=== PATIENT | male | born 1935 | race Caucasian/White ===

== ENCOUNTER 2017-12-17 17:02 | Emergency (ER) | payer OTHER, MEDICARE ==
[~2017-12-17] VITALS: Ht 177.8 cm; Wt 115.7 kg
--- NOTE | 2017-12-17 17:43 | ED GI/GU/ABDOMINAL COMPLAINT ---
History of Present Illness General Chief Complaint: General Adult Stated Complaint: TROUBLE SWALLOWING, VOMITING BLOOD PER PT Source: patient, old records Exam Limitations: no limitations Vital Signs & Intake/Output Vital Signs & Intake/Output Vital Signs Date Time Temp Pulse Resp B/P B/P Pulse O2 O2 Flow FiO2 Mean Ox Delivery Rate 12/17 1904 98.0 89 18 161/77 98 Room Air 12/17 1720 98.0 86 16 202/97 98 Room Air Room Air Allergies Coded Allergies: No Known Allergies (12/17/17) Reconcile Medications Pantoprazole Sodium (Protonix) 40 MG TABLET. 1 TAB PO DAILY GERD Triage Note: PT TO TRIAGE FOR TROUBLE SWALLOWING JUST PRIOR TO ARRIVAL. PT STATES HE THEN COUGH UP PINK PHLEGM. PT APPEARS IN NO DISTRESS. DENIES FEVERS. PT HAS A HX OF GI BLEEDS. Triage Nurses Notes Reviewed? yes Onset: Abrupt Duration: minute(s): (30), better, resolved prior to arrival Timing: recent history Quality/Severity: burning, moderate Severity Numbers: 5 Location: epigastric Radiation: chest Activities at Onset: eating No Modifying Factors: none Associated Symptoms: denies HPI: 82 Year old male with history of dm, htn, hld, gout, presents to the ER for evaluation the patient is currently visiting [place] on business from [place]. He states while at a restaurant today while eating clam chowder clams and shells and lobster he had difficulty swallowing. He states that he became nauseous and vomited and states that he saw small amount of pink phlegm in the vomit. He denies any abdominal pain. He denies any difficulty swallowing at this time no chest pain he states when the symptoms happened he had epigastric discomfort. He states he had a similar episode approximate 6 years ago while in [place] and was told that he had "scratched his esophagus" and subsequently aspirated. He required he states the transfusion at that time. He denies any dizziness lightheadedness chest pain. He denies any complaints at this time he is a daily alcohol drinker. He denies any today Symptoms lasted for about 30 minutes today. He's been tolerating his own secretions since. No shortness of breath dizziness lightheadedness or headache (Maria Eugenia STRICKLAND,Yobany) Past History Travel History Traveled to [place] past 21 day No Medical History Any Pertinent Medical History? see below for history Cardiovascular: hypertension, hyperlipidemia Musculoskeletal: gout Endocrine: diabetes Surgical History Surgical History: non-contributory Psychosocial History ETOH Use: occasional use Family History Hx Contributory? No (Yobany Juárez) Review of Systems Review of Systems Constitutional: Reports: see HPI. Comments Review of systems: See HPI, All other systems negative. Constitutional, no chills no fever, HEENT: no sore throat no congestion, no ear pain Cardiovascular: No chest pain , no palpitation Skin: no rashes, no change in skin Respiratory: No dyspnea no cough no sputum no hemoptysis GI: No nausea vomiting, no diarrhea, no bloating/constipation : No dysuria No hematuria, no frequency Muscle skeletal: No joint pain, no back pain Neurologic: , no headache Heme/endocrine: No bruising (Yobany Juárez) Physical Exam Physical Exam General Appearance: well developed/nourished, no apparent distress, alert, awake Gastrointestinal: soft, non-tender Comments: Well-developed well-nourished person in no acute distress HEENT: Normal EENT exam; PERRL, EOMI,HEAD is atraumatic. moist mucous membranes. Neck: Supple, no stridor normal range of motion Back: Nontender, no CVA tenderness. Full range of motion Cardiovascular: Regular rate and rhythms no murmurs Respiratory: Chest nontender.There were no bony deformities, no asymmetry. No respiratory distress. Patient speaking in full complete sentences. Breath sounds clear to auscultation bilaterally: NO W/R/R Abdomen: Soft, nontender nondistended, no appreciable organomegaly. Normal bowel sounds. No rebound/guarding No ascites. Extremity: No edema, full range of motion of extremities Neuro: Alert oriented x3, motor sensory normal, There were no obvious focal neurologic abnormalities. Skin: No appreciable rash on exposed skin, skin is warm and dry. Psych: Mood and affect is normal, memory and judgment is normal. Core Measures ACS in differential dx? Yes Sepsis Present: No Sepsis Focused Exam Completed? No (Yobany Juárez) Progress Differential Diagnosis: bowel obstruction, colon cancer, gastritis, hepatitis, Deborah-Myron tear, pancreatitis, peptic ulcer, AMI, FOOD BOLUS, ASPIRATION Plan of Care: Orders Procedure Date/time Status TROPONIN LEVEL 12/17 2099 Complete EKG 12/17 2100 Active MISTAKE 12/17 182 Active LIPASE 12/17 181 Complete ETHANOL 12/17 1809 Complete TROPONIN LEVEL 12/18 1719 Complete PARTIAL THROMBOPLASTIN TIME 12/18 1719 Complete PROTHROMBIN TIME 12/18 1719 Complete COMPREHENSIVE METABOLIC PANEL 12/18 1719 Complete CBC WITHOUT DIFFERENTIAL 12/18 1719 Complete EKG 12/18 1719 Active Laboratory Tests 12/17/172053: Troponin I 0.02 12/17/171809: Anion Gap 14, Estimated GFR 32 L, BUN/Creatinine Ratio 14.5, Glucose 160 H, Calcium 8.6, Total Bilirubin 0.7, AST 27, ALT 32, Alkaline Phosphatase 163 H, Troponin I 0.01, Total Protein 7.1, Albumin 4.2, Globulin 2.9, Albumin/Globulin Ratio 1.4, Lipase 204, PT 10.7, INR 0.98, APTT 29, CBC w Diff NO MAN DIFF REQ, RBC 4.55 L, MCV 92.1, MCH 30.7, MCHC 33.3, RDW 15.4 H, MPV 6.8 L, Gran % 82.1 H, Lymphocytes % 10.8 L, Monocytes % 5.3, Eosinophils % 1.4, Basophils % 0.4, Absolute Granulocytes 9.5 H, Absolute Lymphocytes 1.3, Absolute Monocytes 0.6, Absolute Eosinophils 0.2, Absolute Basophils 0, Serum Alcohol < 10.0 12/17/171742: Lipase Cancelled, Serum Alcohol Cancelled Labs ordered old records reviewed patient denies any symptoms at this time orthostatics negative case discussed with Dr. Portillo agrees with plan 1999 I discussed with the patient at length all of his labs and his friends. The patient states he is aware and has been told that his creatinine was elevated in the past. He is unaware of the results are states that this is not new. I discussed with him all his labs given orthostatics are negative he's remained a symptomatically or tolerating drinking water without difficulty discussed with him his x-ray results. Need for repeat troponin at 9 PM. He is in agreement with plan case discussed with Dr. Portillo or nam his labs he agrees as well 12/17/2017 8:49:13 PM case discussed with and signed out to EM Jiang pending repeat troponin EKG Diagnostic Imaging: Viewed by Me: Radiology Read. Discussed w/RAD: Radiology Read. Radiology Impression: PATIENT: REGGIE HADLEY JR PRESENT AGE: 82 PATIENT ACCOUNT NO: [id number] : 37 LOCATION: [facility] ORDERING PHYSICIAN: Yobany STRICKLAND SERVICE DATE: 12/17/17 EXAM TYPE: RAD - XRY-CHEST XRAY, TWO VIEWS EXAMINATION: XR CHEST CLINICAL INFORMATION: Difficulty swallowing. COMPARISON: No relevant prior imaging. TECHNIQUE: 2 views of the chest were obtained. FINDINGS: Lungs are well-expanded. No focal consolidative disease, pleural effusion, or pneumothorax. The cardiac silhouette and upper mediastinal contours are normal. No acute osseous finding. IMPRESSION: Unremarkable chest radiograph. No consolidative disease or effusion. DICTATED BY : Boo Peterson MD DATE/TIME DICTATED:12/17/171955 [employer]URE CAPITAL ANALYST: MAGI DATE/TIME TRANSCRIBED:12/17/171955 CONFIDENTIAL, DO NOT COPY WITHOUT APPROPRIATE AUTHORIZATION. <Electronically signed in Other Vendor System> SIGNED BY: Boo Peterson MD 12/17/171999 Initial ED EKG: normal sinus rhythm, nonspecific ST T wave chg Hand-Off Endorsed To: Anant Flynn Endorsed Time: 2099 Pending: EKG, labs (Yobany Juárez) Departure Departure Disposition: HOME OR SELF CARE Condition: Stable Clinical Impression Primary Impression: Gastritis Additional Instructions: Follow-up with your primary care physician when he returned home. Protonix as directed. [place] diet limit fatty spicy greasy foods. Abstain from alcohol use. Return anytime sooner with any concerns or symptoms persist. Departure Forms: Customer Survey General Discharge Information Prescriptions: Current Visit Scripts Pantoprazole Sodium (Protonix) 1 TAB PO DAILY #30 TAB (Yobany Juárez) PA/SPRAYER HAND Co-Sign Statement Statement: ED Attending supervision documentation- [X] I saw and evaluated the patient. I have also reviewed all the pertinent lab results and diagnostic results. I agree with the findings and the plan of care as documented in the PA's/SPRAYER HAND's documentation. [X] I have reviewed the ED Record and agree with the PA's/SPRAYER HAND's documentation. [] Additions or exceptions (if any) to the PAs/SPRAYER HAND's note and plan are summarized below: [] (Bandar STOCK,Melecio Acevedo)
[2017-12-17 18:25] LABS: ABSOLUTE BASOPHIL COUNT 0 /CUMM (0.0-0.2); ABSOLUTE EOSINOPHIL COUNT 0.2 /CUMM (0.0-0.7); ABSOLUTE GRANULOCYTE CT 9.5 /CUMM (1.4-6.5); ABSOLUTE LYMPH COUNT 1.3 /CUMM (1.2-3.4); ABSOLUTE MONOCYTE COUNT 0.6 /CUMM (0.10-0.60); BASOPHIL % 0.4 % (0.0-2.0); EOSINOPHIL % 1.4 % (0-5); GRANULOCYTE % 82.1 % (42.2-75.2); HEMATOCRIT 41.9 % (42-52); MEAN CORPUSCULAR HGB 30.7 PG (27.0-31.0); MEAN CORPUSCULAR HGB CONC 33.3 G/DL (33.0-37.0); MEAN CORPUSCULAR VOLUME 92.1 FL (80.0-94.0); MEAN PLATELET VOLUME 6.8 FL (7.4-10.4); PLATELET COUNT 287 /CUMM (130-400); RBC DISTRIBUTION WIDTH 15.4 % (11.5-14.5); RED BLOOD CELL CT 4.55 /CUMM (4.70-6.10); WHITE BLOOD CELL COUNT 11.6 /CUMM (4.8-10.8)
[2017-12-17 18:39] LABS: PT 10.7 SEC (9.4-12.5); PTT 29 SEC (25-37)
--- NOTE | 2017-12-17 20:00 | RADIOLOGY REPORT ---
EXAMINATION: XR CHEST CLINICAL INFORMATION: Difficulty swallowing. COMPARISON: No relevant prior imaging. TECHNIQUE: 2 views of the chest were obtained. FINDINGS: Lungs are well-expanded. No focal consolidative disease, pleural effusion, or pneumothorax. The cardiac silhouette and upper mediastinal contours are normal. No acute osseous finding. IMPRESSION: Unremarkable chest radiograph. No consolidative disease or effusion.
[2017-12-17] MEDS ORDERED: PROTONIX40 M3 PO (20:25)
[2017-12-17 21:52] VITALS: BP 158/80
== END 2017-12-17 22:11 ==
LOC: ERH 17:02
PROVIDERS: Physician Assistant Medical
DX: K29.70 Gastritis, unspecified, without bleeding (principal)
CPT/HCPCS: 71046; 93005; 93010; G0480